=== PATIENT | male | born 1955 | race African-American/Black ===

== ENCOUNTER 2016-12-19 06:25 | Day surgery (SDC) | payer MEDICARE, MEDICAID ==
[2016-11-08 12:17] LABS: APPEARANCE,URINE CLEAR; BASOPHILS % (AUTO) 1.3 % (0.0-2.0); EOSINOPHILS % (AUTO) 0.7 % (0.0-3.0); KETONES,URINE 1+ (NEGATIVE); LEUKOCYTE ESTERASE ,URINE 1+ (NEGATIVE); LYMPHOCYTES % (AUTO) 11.5 % (20.0-45.0); MEAN CORPUSCULAR HEMOGLOBIN 30.4 PG (27.0-31.0); MEAN CORPUSCULAR HGB CONC 33.2 G/DL (32.0-36.0); MEAN CORPUSCULAR VOLUME 91 FL (80-99); MEAN PLATELET VOLUME 6.5 FL (6.5-10.1); MONOCYTES % (AUTO) 9.6 % (1.0-10.0); NEUTROPHILS % (AUTO) 76.9 % (45.0-75.0); NITRITE,URINE NEGATIVE (NEGATIVE); PH,URINE 5 (4.5-8.0); PLATELET COUNT 222 K/UL (150-450); PROTEIN,URINE 3+ (NEGATIVE); RED CELL DISTRIBUTION WIDTH 13.7 % (11.6-14.8); UROBILINOGEN,URINE 1 MG/DL (0.0-1.0); WHITE BLOOD COUNT 7.9 K/UL (4.8-10.8)
[2016-11-08 12:29] LABS: INR 0.9 (0.9-1.1); PROTHROMBIN TIME 9.3 SEC (9.30-11.50)
[2016-11-08 12:30] LABS: BACTERIA,URINE FEW /HPF; HYALINE CASTS, URINE 0-2 /LPF; MUCUS,URINE OCCASIONAL /LPF (NONE/OCC); SQUAMOUS EPITHELIAL CELL,UR OCCASIONAL /LPF (NONE/OCC); WBC,URINE 0-2 /HPF (0 - 0)
[2016-11-08 12:31] LABS: ALBUMIN/GLOBULIN RATIO 1.5 (1.0-2.7); CALCIUM 9.2 mg/dL (8.6-10.2); CREATININE 1.9 mg/dL (0.7-1.2); MAGNESIUM 1.7 mg/dL (1.7-2.5); PHOSPHORUS 3.3 mg/dL (2.5-4.8); POTASSIUM 4.9 mEQ/L (3.4-4.9); TOTAL PROTEIN 6.9 g/dL (6.6-8.7)
[~2016-12-19] VITALS: Ht 182.9 cm; Wt 72.6 kg
[2016-12-19] VITALS (9 sets, daily range): BP systolic 134–161; BP diastolic 80–101
[~2016-12-19 06:25] MED LIST: ASPIRIN81 MG ORAL; Akten 3.5% 1ml Btl RIGHT EYE SCH; BENAZEPRIL HCL40 MG ORAL; CITALOPRAM HBR40 M1 ORAL; HYDROCHLOROTHIA25 MG ORAL; IBUPROFEN200 M2 ORAL; Ketorolac Tromethamine Opth 5ml Soln RIGHT EYE SCH; LORATADINE10 M2 PO; PRAVASTATIN SOD20 M1 ORAL; Phenylephrine 10% Opth Soln 5ml RIGHT EYE SCH; SEROQUEL XR300 MG ORAL; SIMVASTATIN10 MG ORAL; Tropicamide 1% Opth 15ml Soln RIGHT EYE SCH; Vigamox Opth Soln 3ml RIGHT EYE SCH; acetaZOLAMIDE 125mg tab ORAL ONE
[2016-12-19] MEDS ORDERED: Ketorolac Tromethamine Opth 5ml Soln ONE (07:14)
[2016-12-19] MEDS ORDERED: Vigamox Opth Soln 3ml ONE (07:14)
[2016-12-19] MEDS ORDERED: Tropicamide 1% Opth 15ml Soln ONE (07:14)
[2016-12-19] MEDS ORDERED: Akten 3.5% 1ml Btl ONE (07:14)
[2016-12-19] MEDS ORDERED: Phenylephrine 10% Opth Soln 5ml ONE (07:14)
[2016-12-19] MEDS ORDERED: BSS 500ml btl ONE (07:15)
[2016-12-19] MEDS ORDERED: Dexamethasone 4mg/ml vial ONE (07:15)
[2016-12-19] MEDS ORDERED: Maxitrol Opth Oint 3.5gm ONE (07:15)
[2016-12-19] MEDS ORDERED: Tetracaine 0.5% Opth 4ml Soln ONE (07:15)
[2016-12-19] MEDS ORDERED: Lidocaine 1% MPF 10mg/ml 5ml ONE (07:15)
[2016-12-19] MEDS ORDERED: Povidone-Iodine 5% opth solution ONE (07:16)
[2016-12-19] MEDS ORDERED: Carbachol 0.01% Op Soln 1.5ml vial ONE (07:16)
[2016-12-19] MEDS ORDERED: EPINEPHrine 1mg/1ml Amp ONE (07:16)
[2016-12-19] MEDS ORDERED: Lidocaine 4% Amp ONE (07:16)
[2016-12-19] MEDS ORDERED: Lidocaine 1% 10mg/ml/Epi 0.005mg/ml 30ml vial INJ ONE (07:17)
[2016-12-19] MEDS ORDERED: BSS 15ml BTL ONE (07:17)
[2016-12-19] MEDS ORDERED: Healon Duet Dual Pack ONE (07:17)
[2016-12-19] MEDS ORDERED: Sodium Hyaluronate 14 mg/ml 0.85ml ONE (07:17)
[2016-12-19] MEDS: Tropicamide 1% Opth 15ml Soln LEFT EYE SCH ×3 (07:22→07:53)
[2016-12-19] MEDS: Vigamox Opth Soln 3ml LEFT EYE SCH ×3 (07:23→07:53)
[2016-12-19] MEDS: Ketorolac Tromethamine Opth 5ml Soln LEFT EYE SCH ×3 (07:23→07:53)
[2016-12-19] MEDS: Akten 3.5% 1ml Btl LEFT EYE SCH ×3 (07:23→07:53)
[2016-12-19] MEDS: Phenylephrine 10% Opth Soln 5ml LEFT EYE SCH ×3 (07:23→07:53)
[2016-12-19] MEDS ORDERED: AMLODIPINE BESY10 MG ORAL (07:38)
[2016-12-19] MEDS ORDERED: CRESTOR10 M2 ORAL (07:38)
[2016-12-19] MEDS ORDERED: METOPROLOL TART50 M1 ORAL (07:38)
[2016-12-19] MEDS ORDERED: VITAMIN D400 INTLU ORAL (07:38)
[2016-12-19] MEDS ORDERED: CLOPIDOGREL75 MG ORAL (07:38)
[2016-12-19] MEDS ORDERED: FLOMAX0.4 MG ORAL (07:38)
[2016-12-19] MEDS ORDERED: NS Irrig 1000ml ONE (10:00)
[2016-12-19] MEDS ORDERED: LR 1000ml ONE (10:00)
[2016-12-19] MEDS ORDERED: Lidocaine 1% Plain 30 ml INJ ONE (10:00)
[2016-12-19] MEDS ORDERED: Sterile Water Irrig 1000ml IRRIG ONE (10:00)
[2016-12-19] MEDS ORDERED: Propofol 200mg/20ml IV ONE (10:00)
[2016-12-19] MEDS ORDERED: Midazolam 2mg/2ml Inj ONE (10:00)
[2016-12-19] MEDS ORDERED: Alfentanil 2ml Inj ONE (10:00)
--- NOTE | 2016-12-19 10:09 | Anethesia Preoperative Eval ---
Anesthesia Pre-op PMH/ROS General Date of Evaluation: Dec 19, 2016 Time of Evaluation: 09:44 Anesthesiologist: Jordan ASA Score: ASA 3 Mallampati Score Class I : Soft palate, uvula, fauces, pillars visible Class II: Soft palate, uvula, fauces visible Class III: Soft palate, base of uvula visible Class IV: Only hard plate visible Mallampati Classification: Class II Surgeon: Mario Diagnosis: Cataract OS Surgical Procedure: Cat Ext IOL OS Anesthesia History: none Social History: smoking, current smoker Family History: no anesthesia problems Allergies: Coded Allergies: NO KNOWN ALLERGIES (Unverified Allergy, Unknown, 09/15/13) Medications: see eMAR Past Medical History Cardiovascular: Reports: HTN, CAD - [place], other - HL, Syncope Pulmonary: Reports: COPD HEENT: Reports: cataract (L), cataract (R), glaucoma Musculoskeletal/Integumentary: Reports: OA Anesthesia Pre-op Phys. Exam Physician Exam Last Vital Signs Date Time Temp Pulse Resp B/P (MAP) Pulse Ox O2 Delivery O2 Flow Rate FiO2 12/19/16 07:03 96.8 61 20 136/94 100 Room Air Constitutional: NAD Neurologic: CN 2-12 intact Cardiovascular: RRR Respiratory: CTA Gastrointestinal: S/NT/ND Airway Exam Mallampati Score: Class II MO: full ROM: full Teeth: intact Anesthesia Pre-op A/P Risk Assessment & Plan Assessment: ASA 3 Plan: GA Status Change Before Surgery: Donato Nunn MD Dec 19, 2016 10:09
[2016-12-19] MEDS ORDERED: LR 1000ml 1,000 ML IVLG SCH (10:10)
--- NOTE | 2016-12-19 10:12 | Immediate Post-Op Evaluation ---
Immediate Post-Op Evalulation Immediate Post-Op Evalulation Procedure: Cat Ext IOL OS Date of Evaluation: Dec 19, 2016 Time of Evaluation: 10:55 IV Fluids: 900 LR Blood Products: 0 Estimated Blood Loss: 2 Urinary Output: 0 Blood Pressure Systolic: 161 Blood Pressure Diastolic: 99 Pulse Rate: 54 Respiratory Rate: 16 O2 Sat by Pulse Oximetry: 100 Temperature (Fahrenheit): 97.5 Pain Score (1-10): 1 Nausea: No Vomiting: No Complications 0 Patient Status: awake, reacts, patent, none Hydration Status: adequate Donato Ortega MD Dec 19, 2016 10:12
--- NOTE | 2016-12-19 10:12 | 48 Hour Post Anesthesia Eval ---
Post Anesthesia Evaluation Procedure: Cat Ext IOL OS Date of Evaluation: Dec 19, 2016 Time of Evaluation: 13:06 Blood Pressure Systolic: 147 0: 83 Pulse Rate: 67 Respiratory Rate: 18 Temperature (Fahrenheit): 98.2 O2 Sat by Pulse Oximetry: 100 Airway: patent Nausea: No Vomiting: No Pain Intensity: 1 Hydration Status: adequate Cardiopulmonary Status: Stable Mental Status/LOC: patient returned to baseline Follow-up Care/Observations: 0 Post-Anesthesia Complications: 0 Follow-up care needed: ready to discharge Donato Ortega MD Dec 19, 2016 10:12
[2016-12-19] MEDS ORDERED: Midazolam 2mg/2ml Inj IVP PRN (10:15)
[2016-12-19] MEDS ORDERED: oxyCODONE HCL/Acetaminophen 5/325mg ORAL PRN (10:15)
[2016-12-19] MEDS ORDERED: LORazepam Inj 2mg/ml 1ml IV PRN (10:15)
[2016-12-19] MEDS ORDERED: Atropine Inj 1mg/10ml Syr IV PRN (10:15)
[2016-12-19] MEDS ORDERED: Norco 7.5mg/325mg tab ORAL PRN (10:15)
[2016-12-19] MEDS ORDERED: Meperidine 25mg/0.5ml Inj (FOR RIGORS ONLY) IV PRN (10:15)
[2016-12-19] MEDS ORDERED: DiphenhydrAMINE 50mg/ml Inj IVP PRN (10:15)
[2016-12-19] MEDS ORDERED: Hydromorphone 0.5mg/0.5ml inj IVP PRN (10:15)
[2016-12-19] MEDS ORDERED: Metoclopramide 10mg/2ml Inj IVP PRN (10:15)
[2016-12-19] MEDS ORDERED: Ketorolac 60mg Inj IV PRN (10:15)
[2016-12-19] MEDS ORDERED: Norco 5mg/325mg tab ORAL PRN (10:15)
[2016-12-19] MEDS ORDERED: fentaNYL 100 mcg/2 mL IV PRN (10:15)
[2016-12-19] MEDS ORDERED: Ketorolac 30mg Inj IV PRN (10:15)
--- NOTE | 2016-12-19 10:42 | Operative Note - PDOC ---
Operative Note Operative Note Date of Operation/Procedure: Dec 19, 2016 Chief Complaint: Visually significant cataract, angle closure glaucoma, left eye Pre-op Diagnosis: Visually significant cataract, angle closure glaucoma, left eye Procedure: Complex cataract extraction with intra-ocular lens placement Post-op Diagnosis: The same Post-op Diagnosis: same as pre-op Operative Findings: consistent w/pre-op dx studies Surgeon: Carson Martin Anesthesiologist: Dr. Flores Anesthesia: MAC Specimen: none Complications: none Condition: stable Estimated Blood Loss: none Drains: none Implant(s) used?: Yes - ZCBOO + 27.50 Indications for Procedure Blurred vision, uncontrolled glaucoma Description of Procedure See the complete op note Carson Martin M.D. Dec 19, 2016 10:42
--- NOTE | 2016-12-19 10:45 | Discharge Summary ---
Discharge Summary Hospital Course Date of Admission 12/19/16 Date of Discharge 12/19/16 Admitting Diagnosis Visually significant cataract, uncontrolled glaucoma HPI Rocky Manning is a 61 year old male who was admitted on for Car Lt Eye Discharge Condition Upon Discharge: stable Discharge Disposition Patient was discharged to home with a friend. Discharge Diagnoses: Discharge Instructions Discharge Instructions Follow up with: Dr. Martin the next day Services Upon Discharge: other - home with the family/ friend Diet: cardiac 2 GM Na, low fat Activity: light activity Special Instructions No bending, straining, heavy lifting For Surgical Patients Dressing Care: keep dry and clean May shower: No Contact your physician for: Carson Sewell M.D. Dec 19, 2016 10:45
--- NOTE | 2016-12-19 19:55 | Opthalmology H&P ---
Ophthalmology H&P H&P Chief Complaint: decreased vision in left eye, poorly controlled glaucoma HPI Vision Affects Ability to: read, drive Past Ocular History: glaucoma HPI Narrative 61 y/o AAM with blurred vision and uncontrolled glaucoma left eye, referred for cataract extraction with IOL insertion Exam Visual Acuity: 20/50 Tension: 20 with maximum meds Eye Exam: findings: anterior chambers - shallow, lens - 2+ CC, 2+ NSC, fundus exam - 0.6 c/d Assessment/Plan Treatment Plan: cataract extraction w/ lens implant Goals of Treatment: improvement of vision, lowering of intraocular pressure Attestation Attestation The risks and benefits of the surgery as well as alternative procedures were explained to the patient in detail. Carson Martin M.D. Dec 19, 2016 19:55
--- NOTE | 2016-12-19 19:56 | Pre-Procedure Note/Attestation ---
Pre-Procedure Note/Attestation Complete Prior to Procedure Planned Procedure: left Procedure Narrative: Complex cataract extraction with IOL insertion Indications for Procedure Pre-Operative Diagnosis: Visually significant cataract, angle closure glaucoma, left eye Attestation I attest that I discussed the nature of the procedure; its benefits; risks and complications; and alternatives (and the risks and benefits of such alternatives ), prior to the procedure, with the patient (or the patient's legal guest services representative). I attest that, if there was a reasonable possibility of needing a blood transfusion, the patient (or the patient's legal guest services representative) was given the [facility] standardized written summary, pursuant to the [place] Blood Safety Act ([place] Health and Safety Code # 1645, as amended). I attest that I re-evaluated the patient just prior to the surgery and that there has been no change in the patient's H&P, except as documented below: Carson Martin M.D. Dec 19, 2016 19:56
--- NOTE | 2016-12-19 20:09 | Operative Note - PDOC ---
Opthamology Op Report Surgical Report PREPROCEDURE DIAGNOSIS: 1- Visually significant cataract, left eye 2- Floppy iris syndrome POSTPROCEDURE DIAGNOSIS: 1- Visually significant cataract, left eye 2- floppy iris syndrome PROCEDURE: complex Phacoemulsification with Intra-ocular lens placement, left eye SURGEON: Carson Martin MD ANESTHESIA: MAC, local anesthesia IMPLANT(S): TANYA IOL: ZCBOO, Power 27.50 Serial #[id number] DRAINS: None SPECIMEN: None ESTIMATED BLOOD LOSS: None BLOOD PRODUCTS ADMINISTERED: None COMPLICATIONS: None FINDINGS: Opacified lens, floppy iris INDICATIONS FOR PROCEDURE: This patient is 61 year old male with Visually significant cataract, narrow angle glaucoma who presented with blurred vision and difficulty reading and driving. Past medical history is significant for HTN, HLD and CAD. Past surgical history is significant for hernia operation, cardiac stent, trabeculectomy, right eye. The patient is using ASA, Plavix, crestor, Metoprolol, Amlodipine. There is no known allergy. There is no history of glaucoma or any other hereditary ophthalmic disease in the family. Review of system is negative except for the blurred vision in the affected eye. VA in the operated eye 20/50, IOP 20 mmHg with the maximum medication. Pupils are reactive with RAPD in the right eye. Slit lamp exam: cornea is clear, shallow anterior chamber, 2+ cortical cataract , 2+ nuclear sclerosis cataract, there is no psudoexfoliation present at the pupillary margin or anterior lens capsule. On funds exam cup/disc ratio is 0.6, macula shows normal foveal reflex, retina is attached. Risk, benefit and alternative to cataract surgery was explained to the patient, who agreed to proceed with the procedure. The informed consent was signed by the patient. DESCRIPTION OF PROCEDURE: The patient was seen by me along with anesthesia team in the pre op area and the surgical site was marked and confirmed. Anesthetic drops along with dilating drops was instilled in surgical eye in the pre op. The patient was then brought back to the operating tony placed in supine position. The eye was prepped with Betadine 5% and draped in sterile manner for the ophthalmic surgery. An eyelid speculum was was placed to keep the eyelid open. Paracentesis wound was made superiorly and inferiorly though clear cornea near the limbus using 1.2mm side-port blade. A mixture of Preservative free Lidocaine 2% with epinephrine 03/4999 was injected into the anterior chamber through the paracentesis wound. The anterior chamber was inflated with viscoelastic (viscoat ). A keratom blade was used to make a bi-planar, shelved, clear corneal incision , starting at temporal limbus and then tunneling through clear cornea to enter the anterior chamber. A circular curvilinear continue capsulorrhexis was initiated by cystotom and continued with utrata forceps. The capsular flap then was removed. Hydrodissection and hydrodelineation was performed using BSS until the lens was freely rotatable. The lens nucleus was then removed using the phacoemulsification handpiece. The residual cortex was removed with the bimanual irrigation/aspiration handpieces. The capsular bag and anterior chamber were inflated with viscoelastic, and the IOL was inserted into the capsular bag. Using irrigation/Aspiration handpiece on the aspiration mode, [place] was removed from the anterior and posterior chamber. Miostat was injected to the AC to help constricting of the floppy iris. Main wound and paracentesis wound was hydrated by BSS. The speculum was removed. Vigamox drops and Sterile antibiotic/steroid ointment was applied to the eye. A cotton patch and clear shield were placed over the operative eye. The patient was transferred to the recovery room in stable condition. Carson Martin MD [id number] Carson Martin M.D. Dec 19, 2016 20:09
--- NOTE | 2016-12-20 08:15 | Pre-op HX & Phy Repo 2 SIG ---
DATE OF ADMISSION: 12/19/2016 Reason For Evaluation: I was asked by Dr. Martin to see this 61-year-old male, who is going for elective surgery on the left eye cataract. The patient was examined. Chart was reviewed. Past Medical History/Review Of Systems: Remarkable for history of myocardial infarction and three stent placement three years ago, history of COPD, history of hypertension, and benign prostatic hypertrophy. The patient denies history of stroke or seizures. Denies history of GI bleeding or heartburn. No history of renal insufficiency. No history of thyroid problem or anemia. The patient also has glaucoma. Past Surgical History: Left inguinal hernia repair 30 years ago, of stent placement three years ago. Medications: Baby aspirin, amiodarone, Crestor 10 mg, Flomax 0.4 mg, atenolol 50 mg daily, 75 mg, and eye drops. Patient has glaucoma. ALLERGIES: None known. Family History: Mother alive, has diabetes, and father from heart attack secondary to cocaine abuse. Habits: The patient smoked for 40 years. Presently smokes one to two cigars a day. PHYSICAL EXAMINATION: General: The patient is alert, well-developed and well-nourished male in his 60s. Vital Signs: Blood pressure 157/95, second measurement 136/94, temperature 96.8 degrees, pulse 67 and regular, and O2 saturation 99% on room air. HEENT: Normocephalic and atraumatic. Ears, clear. SKIN: Warm and clear. Tattoo on the neck. CHEST: No deformity or asymmetry. NECK: Supple. Trachea midline. No jugular vein distention. LUNGS: Clear. No rales or rhonchi. HEART: Sinus rhythm. No ectopy. No murmur. No S3 or S4. ABDOMEN: Soft. No palpable mass. No rebound. EXTREMITIES: No peripheral edema. No varicose vein. . NEUROLOGIC: No nystagmus or asymmetry. Laboratory Data: Pending. The patient did not eat or drink from last night. ECG, normal sinus rhythm, bradycardia, 55 per minute, otherwise normal ECG. IMPRESSION: 1. Cataract, left eye. 2. Glaucoma. 3. History of myocardial infarction and three coronary stents three years ago at [facility]. 4. Hypertension. 5. Benign prostatic hypertrophy. 6. Hyperlipidemia. 7. Chronic obstructive pulmonary disease. PLAN: Cataract extraction, left eye, Dr. Martin. Conclusion: The patient's diastolic blood pressure is slightly elevated and mild bradycardia. The patient did not eat or drink from last night. The patient's condition optimized for surgery. Thank you very much Dr. Martin for the privilege to participate in presurgical care of this interesting patient. Debora Castanon M.D. DR: JOE JOB#: [id number] CC:
== END 2016-12-19 12:35 | disposition home or self-care (01) ==
LOC: SUR 06:25
DX: H26.9 Unspecified cataract (principal); H21.81 Floppy iris syndrome; H40.20X0 Unspecified primary angle-closure glaucoma, stage unspecified; I10 Essential (primary) hypertension; I25.10 Atherosclerotic heart disease of native coronary artery without angina pectoris; J44.9 Chronic obstructive pulmonary disease, unspecified; M19.90 Unspecified osteoarthritis, unspecified site; I25.2 Old myocardial infarction; F17.200 Nicotine dependence, unspecified, uncomplicated
CPT/HCPCS: 36415; 66982; 80048; 80053; 81003; 83735; 84100; 85025; 85610; 85730; 87086; 93005; J0171; J1170; J2001; J2250; J2704; J3010; J3490; J7120; V2632; 94003; 94150

== ENCOUNTER 2017-01-16 07:34 | Day surgery (SDC) | payer MEDICARE, MEDICAID ==
--- NOTE | 2017-01-15 18:19 | Opthalmology H&P ---
Ophthalmology H&P H&P Chief Complaint: decreased vision in right eye HPI Vision Affects Ability to: read, watch TV Past Ocular History: glaucoma HPI Narrative The patient is 61 year old man with narrow angle glaucoma due to visually significant cataract and corneal astigmatism. He has difficulty reading and driving. Exam Visual Acuity: 20/400 Tension: 20 with medication Eye Exam: normal OU: external exam, corneas, lens - 2+ CC, 3+ NSC, fundus exam - 0.8 c/d, findings: anterior chambers - shallow Assessment/Plan Treatment Plan: cataract extraction w/ lens implant, other - LRI Goals of Treatment: improvement of vision, lowering of intraocular pressure Attestation Attestation The risks and benefits of the surgery as well as alternative procedures were explained to the patient in detail. Carson Martin M.D. Jan 15, 2017 18:19
--- NOTE | 2017-01-15 18:21 | Pre-Procedure Note/Attestation ---
Pre-Procedure Note/Attestation Complete Prior to Procedure Planned Procedure: right Procedure Narrative: Cataract extraction with IOL insertion right eye Limbal relaxing incision, right eye Indications for Procedure Pre-Operative Diagnosis: Visually significant cataract, right eye Narrow angle glaucoma right eye Corneal astigmatism, right eye Attestation I attest that I discussed the nature of the procedure; its benefits; risks and complications; and alternatives (and the risks and benefits of such alternatives ), prior to the procedure, with the patient (or the patient's legal technical account representative). I attest that, if there was a reasonable possibility of needing a blood transfusion, the patient (or the patient's legal technical account representative) was given the [facility] standardized written summary, pursuant to the [place] Blood Safety Act ([place] Health and Safety Code # 1645, as amended). I attest that I re-evaluated the patient just prior to the surgery and that there has been no change in the patient's H&P, except as documented below: Carson Martin M.D. Jan 15, 2017 18:21
[~2017-01-16] VITALS: Ht 182.9 cm; Wt 71.7 kg
[2017-01-16] VITALS (12 sets, daily range): BP systolic 101–141; BP diastolic 58–88
[~2017-01-16 07:34] MED LIST changes: +AMLODIPINE BESY10 MG ORAL; +Akten 3.5% 1ml Btl ONE; -Akten 3.5% 1ml Btl RIGHT EYE SCH; +BSS 15ml BTL ONE; +BSS 500ml btl ONE; +Bupivacaine 0.75% 30ml vial INJ ONE; +CLOPIDOGREL75 MG ORAL; +CRESTOR10 M2 ORAL; +Carbachol 0.01% Op Soln 1.5ml vial ONE; +Dexamethasone 4mg/ml vial ONE; +EPINEPHrine 1mg/1ml Amp ONE; +FLOMAX0.4 MG ORAL; +Healon Duet Dual Pack ONE; -Ketorolac Tromethamine Opth 5ml Soln RIGHT EYE SCH; +Ketorolac Tromethamine Opth Soln ONE; +Lidocaine 1% 10mg/ml/Epi 0.005mg/ml 30ml vial INJ ONE; +Lidocaine 1% MPF 10mg/ml 5ml ONE; +Lidocaine 2% 20mg/ml/EPI 0.01mg/ml 20ml ONE; +Lidocaine 4% Amp ONE; +METOPROLOL TART50 M1 ORAL; +Maxitrol Opth Oint 3.5gm ONE; +Phenylephrine 10% Opth Soln 5ml ONE; -Phenylephrine 10% Opth Soln 5ml RIGHT EYE SCH; +Povidone-Iodine 5% opth solution ONE; +Sodium Hyaluronate 14 mg/ml 0.85ml ONE; +Tetracaine 0.5% Opth Soln ONE; -Tropicamide 1% Opth 15ml Soln RIGHT EYE SCH; +Tropicamide 1% Opth Soln ONE; +VITAMIN D400 INTLU ORAL; -Vigamox Opth Soln 3ml RIGHT EYE SCH; +Vigamox Opth Soln ONE
[2017-01-16] MEDS: Tropicamide 1% Opth Soln RIGHT EYE SCH ×3 (08:09→08:21)
[2017-01-16] MEDS: Phenylephrine 10% Opth Soln 5ml RIGHT EYE SCH ×3 (08:09→08:21)
[2017-01-16] MEDS: Ketorolac Tromethamine Opth Soln RIGHT EYE SCH ×3 (08:09→08:21)
[2017-01-16] MEDS: Vigamox Opth Soln RIGHT EYE SCH ×3 (08:09→08:21)
[2017-01-16] MEDS: Akten 3.5% 1ml Btl RIGHT EYE SCH ×3 (08:10→08:21)
[2017-01-16] MEDS ORDERED: LR 1000ml ONE (09:00)
[2017-01-16] MEDS ORDERED: Midazolam 2mg/2ml Inj ONE (09:00)
[2017-01-16] MEDS ORDERED: Sterile Water Irrig 1000ml IRRIG ONE (09:00)
[2017-01-16] MEDS ORDERED: NS Irrig 1000ml ONE (09:00)
[2017-01-16] MEDS ORDERED: fentaNYL 100 mcg/2 mL IV ONE (09:00)
[2017-01-16] MEDS ORDERED: LR 1000ml 1,000 ML IVLG SCH (09:04)
--- NOTE | 2017-01-16 09:04 | Anethesia Preoperative Eval ---
Anesthesia Pre-op PMH/ROS General Date of Evaluation: Jan 16, 2017 Time of Evaluation: 09:00 Anesthesiologist: Casie ASA Score: ASA 3 Mallampati Score Class I : Soft palate, uvula, fauces, pillars visible Class II: Soft palate, uvula, fauces visible Class III: Soft palate, base of uvula visible Class IV: Only hard plate visible Mallampati Classification: Class II Surgeon: Mario Diagnosis: R eye cataract Surgical Procedure: R eye cataract extraction Anesthesia History: none Family History: no anesthesia problems Allergies: Coded Allergies: NO KNOWN ALLERGIES (Unverified Allergy, Unknown, 09/15/13) Past Medical History Cardiovascular: Reports: HTN, CAD, [place] - stable no recent CP [address], Denies: valve dz, arrhythmia, other Pulmonary: Denies: asthma, COPD, [place], other Gastrointestinal/Genitourinary: Reports: GERD, CRI, Denies: ESRD, other Neurologic/Psychiatric: Denies: dementia, CVA, depression/anxiety, TIA, other Endocrine: Denies: DM, hypothyroidism, steroids, other HEENT: Reports: cataract (L), cataract (R), Denies: glaucoma, [place] (L), [place] (R), other Hematology/Immune: Denies: anemia, DVT, bleeding disorder, other Musculoskeletal/Integumentary: Denies: OA, RA, DJD, DDD, edema, other PMH Narrative: as above PSxH Narrative: hernia repair, coronary stents placement, L eye cataract Anesthesia Pre-op Phys. Exam Physician Exam Last Vital Signs Date Time Temp Pulse Resp B/P (MAP) Pulse Ox O2 Delivery O2 Flow Rate FiO2 01/16/17 08:12 97.8 60 20 137/88 97 Room Air Constitutional: NAD Neurologic: CN 2-12 intact Cardiovascular: RRR, no M/R/G Respiratory: CTA Gastrointestinal: S/NT/ND Airway Exam Mallampati Score: Class II MO: full Neck: flexible ROM: full Teeth: missing Dentures: no upper, no lower Anesthesia Pre-op A/P Labs see chart Studies Pre-op Studies: EKG - SR Risk Assessment & Plan Assessment: ASA 3 Plan: MAC Status Change Before Surgery: No Pre-Antibiotics Drug: none ANNE NASCIMENTO M.D. Jan 16, 2017 09:04
[2017-01-16] MEDS ORDERED: DiphenhydrAMINE 50mg/ml Inj IVP PRN (09:15)
[2017-01-16] MEDS ORDERED: fentaNYL 100 mcg/2 mL IV PRN (09:15)
[2017-01-16] MEDS ORDERED: Povidone-Iodine 5% opth solution ONE ×2 (09:29→09:54)
[2017-01-16] MEDS ORDERED: Propofol 200mg/20ml IV ONE (09:54)
[2017-01-16] MEDS ORDERED: Triamcinolone 40mg/ml PF Vial ONE (11:13)
--- NOTE | 2017-01-16 11:37 | Operative Note - PDOC ---
Operative Note Operative Note Date of Operation/Procedure: Jan 16, 2017 Chief Complaint: blurred vision, uncontrolled glaucoma, right eye Pre-op Diagnosis: Visually significant cataract, right eye Narrow angle glaucoma right eye Corneal astigmatism, right eye Procedure: Cataract extraction, Ant vitrectomy, LRI, surgical PI Post-op Diagnosis: The same Post-op Diagnosis: same as pre-op Operative Findings: consistent w/pre-op dx studies Surgeon: Dr. Carson Martin Anesthesiologist: Dr. Wilson Anesthesia: general Specimen: none Complications: yes - Vitreous loss Condition: stable Estimated Blood Loss: none Drains: none Implant(s) used?: No Indications for Procedure Visually significant cataract (probably traumatic), uncontrolled glaucoma Description of Procedure See the complete note Carson Martin M.D. Jan 16, 2017 11:37
--- NOTE | 2017-01-16 11:47 | Immediate Post-Op Evaluation ---
Immediate Post-Op Evalulation Immediate Post-Op Evalulation Procedure: R eye cataract extraction Date of Evaluation: Jan 16, 2017 Time of Evaluation: 11:45 IV Fluids: 1000 Blood Products: none Estimated Blood Loss: min Urinary Output: none Blood Pressure Systolic: 132 Blood Pressure Diastolic: 58 Pulse Rate: 74 Respiratory Rate: 20 O2 Sat by Pulse Oximetry: 99 Temperature (Fahrenheit): 97.6 Pain Score (1-10): 2 Nausea: No Vomiting: No Complications none Patient Status: awake, patent, none Hydration Status: adequate ANNE NASCIMENTO M.D. Jan 16, 2017 11:47
[2017-01-16] MEDS ORDERED: Meperidine 50mg/ml Inj(FOR RIGORS ONLY) ONE (11:49)
[2017-01-16] MEDS: Meperidine 50mg/ml Inj(FOR RIGORS ONLY) IV PRN ×2 (11:56→12:31)
--- NOTE | 2017-01-16 12:02 | Discharge Summary ---
Discharge Summary Hospital Course Date of Admission 01/16/17 Date of Discharge 01/16/17 Admitting Diagnosis Visually significant cataract, Uncontrolled glaucoma, astigmatism HPI Rocky Manning is a 61 year old male who was admitted on for Cat Rt Eye Procedures LRI, Cataract extraction, Anterior vitrectomy, surgical PI Hospital Course difficult intubation Discharge Condition Upon Discharge: stable Discharge Disposition Patient was discharged to home with a friend Discharge Diagnoses: Carson Martin M.D. Jan 16, 2017 12:02
--- NOTE | 2017-01-16 13:07 | 48 Hour Post Anesthesia Eval ---
Post Anesthesia Evaluation Procedure: R eye cataract extraction Date of Evaluation: Jan 16, 2017 Time of Evaluation: 13:06 Blood Pressure Systolic: 114 0: 57 Pulse Rate: 58 Respiratory Rate: 20 Temperature (Fahrenheit): 97.6 O2 Sat by Pulse Oximetry: 98 Airway: patent Nausea: No Vomiting: No Pain Intensity: 2 Hydration Status: adequate Cardiopulmonary Status: stable Mental Status/LOC: patient returned to baseline Follow-up Care/Observations: n/a Post-Anesthesia Complications: none Follow-up care needed: ready to discharge ANNE NASCIMENTO M.D. Jan 16, 2017 13:07
--- NOTE | 2017-01-16 16:26 | Operative Note - PDOC ---
Opthamology Op Report Surgical Report PREPROCEDURE DIAGNOSIS: 1- Visually significant cataract, right eye 2- Corneal astigmatism, right eye POSTPROCEDURE DIAGNOSIS: 1- Visually significant cataract, right eye 2- Corneal astigmatism, right eye PROCEDURE: 1- Complex cataract extraction, right eye 2- Anterior vitrectomy, right eye 3- Surgical PI, right eye 4- Limbal relaxing incision, right eye SURGEON: Carson Martin MD ANESTHESIA: General anesthesia IMPLANT(S): None DRAINS: None SPECIMEN: None ESTIMATED BLOOD LOSS: None BLOOD PRODUCTS ADMINISTERED: None COMPLICATIONS: vitreous loss FINDINGS: Large, Opacified and dense lens, fibrotic capsule INDICATIONS FOR PROCEDURE: This patient is 61 year old male with Visually significant cataract, narrow angle glaucoma who presented with blurred vision and difficulty reading and driving and uncontrolled glaucoma right eye. Past medical history is significant for HTN, HLD and CAD. Past surgical history is significant for hernia surgery, cardiac stent, cataract surgery in the left eye, trabeculectomy on the right eye. The patient is using ASA, Plavix, crestor , metoprolol, Amlodipine.. There is no known allergy. There is no history of glaucoma or any other hereditary ophthalmic disease in the family. Review of system is negative except for the blurred vision in the affected eye. VA in the operated eye 20/400, IOP 18 mmHg with Lumigan and combigan. Pupils are reactive with + RAPD on the right eye. Slit lamp exam: cornea is clear, deep anterior chamber, 2+ cortical cataract, 4+ nuclear sclerosis cataract, there is no psudoexfoliation present at the pupillary margin or anterior lens capsule. On funds exam cup/disc ratio is 0.8, macula shows dull foveal reflex, retina is attached. Risk, benefit and alternative to cataract surgery was explained to the patient, who agreed to proceed with the procedure. The informed consent was signed by the patient. DESCRIPTION OF PROCEDURE: The patient was seen by me along with anesthesia team in the pre op area and the surgical site was marked and confirmed. Anesthetic drops along with dilating drops was instilled in surgical eye in the pre op. The patient was then brought back to the operating tony placed in supine position. The patient underwent general anesthesia with difficult intubation by anesthesia team.The eye was prepped with Betadine 5% and draped in sterile manner for the ophthalmic surgery. An eyelid speculum was was placed to keep the eyelid open. using atomic knife LRI was performed from 180 to 235 degree. Paracentesis wound was made superiorly and inferiorly though clear cornea near the limbus using 1.2mm side- port blade. Preservative free Lidocaine 2% mixed with epinephrine 03/4999 was injected into the anterior chamber through the paracentesis wound. The anterior chamber was inflated with viscoelastic (viscoat). A keratom blade was used to make a bi-planar, shelved, clear corneal incision, starting at temporal limbus and then tunneling through clear cornea to enter the anterior chamber. A circular curvilinear continue capsulorrhexis was initiated by cystotom and continued with utrata forceps. The capsular flap then was removed. Hydrodissection was performed using BSS with incomplete rotation of the lens due to adhesions of the lens capsule to the nucleus. The lens nucleus was very dens and large with some attachment to the capsule. Using phacoemulsification handpiece, the sculpting was performed, despite nuclear splitting, necleous pieces was not removable. The procedure was converted to ECCE. Due to vitreous loss, after repairing the extended corneal wound with 4 corneal sutures, anterior vitrectomy was performed. The residual cortex was removed with the bimanual irrigation/aspiration handpieces. Triamcinolone was injected into the AC to pain the vitreous. Ant vitrectomy was performed on the second round to ensure there is no vit in the AC. Using vitrector on the low cut, PI was performed. Main wound and paracentesis wound was hydrated by BSS, until no leakage was observed. Subconjunctival injection of a mixture of dexametasone, ancef was done at the end of the procedure. The speculum was removed. Vigamox drops and Sterile antibiotic/steroid ointment was applied to the eye. A cotton patch and clear shield were placed over the operative eye. The patient was transferred to the recovery room in stable condition. Carson Martin MD [id number] Carson Martin M.D. Jan 16, 2017 16:26
--- NOTE | 2017-01-17 12:30 | Pre-op HX & Phy Repo 2 SIG ---
DATE OF ADMISSION: 01/16/2017 PRESURGICAL INTERNAL MEDICINE HISTORY AND PHYSICAL REASON FOR EVALUATION: I was asked by Dr. Carson Martin to see this 61-year-old male, who is going for elective surgery on the right eye. The patient has a cataract in right eye. Please see full History and Physical by Dr. Carson Martin. The patient was examined. Chart was reviewed. PAST MEDICAL HISTORY AND REVIEW OF SYSTEMS: Remarkable for COPD, hypertension, hyperlipidemia, and heart attack 3 years ago. Denies history of GI bleeding. No diabetes. No renal failure. No hepatitis. PAST SURGICAL HISTORY: Right inguinal hernia years ago and cataract of the left eye recently at [facility]. The patient also had post heart attack two coronary stent placements. MEDICATIONS: The patient's current medications include baby aspirin, amlodipine, Plavix, metoprolol, multivitamin, Crestor, and vitamin D3. FAMILY HISTORY: Father from heart attack and cocaine addiction overdose. Mother had hypertension. SOCIAL HISTORY: The patient smokes two cigars daily. Occasional alcohol. No street drugs. PHYSICAL EXAMINATION: GENERAL: Alert, well-developed, well-nourished male in his 60s. The patient's weight is 168 pounds and 6 feet tall. VITAL SIGNS: Blood pressure 137/88, temperature 97.8, pulse 60 and regular. No ectopy. O2 saturation 97% on room air. SKIN: Clear. No rashes. No diaphoresis or open wounds. LYMPHATIC: Lymph nodes are not enlarged. HEENT: Head, normocephalic and atraumatic. Ears, clear. Eyes, full description per Dr. Carson Martin. Mouth is clear and moist. No dentures. NECK: Supple. No jugular vein distention. Carotids artery +2. Trachea midline. CHEST: No deformity or asymmetry. LUNGS: Clear to auscultation and percussion. HEART: Sinus rhythm. No ectopy. No murmur. No S3 or S4. ABDOMEN: Soft and benign. Liver and spleen are not enlarged. EXTREMITIES: No edema. No varicose veins. No calf tenderness. No deformity. GENITOURINARY TRACT: Normal for gender. No dysuria. No CVA tenderness. NEUROLOGIC: No tremor. No nystagmus. LABORATORY DATA: ECG, sinus rhythm. Normal ECG. Lab work within normal limits. The patient did not eat or drink from last night. IMPRESSION: 1. Cataract, right eye. 2. Chronic obstructive pulmonary disease. 3. Hypertension, controlled. 4. Hyperlipidemia. 5. History of coronary heart disease. 6. Myocardial infarction 3 years ago. 7. Coronary stents x2. PLAN: Cataract extraction, right eye with intraocular lens implant per Dr. Carosn Martin. CONCLUSION: The patient has a history of hypertension, which is controlled by medication. He also has history of chronic obstructive pulmonary disease. O2 saturation within normal limits on room air 97%. The patient did not eat or drink from last night. The patient's condition optimized for surgery. Thank you very much, Dr. Martin, for the privilege to participate in presurgical care of this interesting patient. Debora Castanon M.D. DR: ASAF JOB#: [id number] CC:
== END 2017-01-16 12:55 | disposition home or self-care (01) ==
LOC: SUR 07:34
DX: H26.9 Unspecified cataract (principal); H52.201 Unspecified astigmatism, right eye; H40.9 Unspecified glaucoma; J44.9 Chronic obstructive pulmonary disease, unspecified; E78.5 Hyperlipidemia, unspecified; I25.10 Atherosclerotic heart disease of native coronary artery without angina pectoris; Z95.5 Presence of coronary angioplasty implant and graft; K21.9 Gastro-esophageal reflux disease without esophagitis; I12.9 Hypertensive chronic kidney disease with stage 1 through stage 4 chronic kidney disease, or unspecified chronic kidney disease; N18.9 Chronic kidney disease, unspecified; I25.2 Old myocardial infarction; Z82.49 Family history of ischemic heart disease and other diseases of the circulatory system; Z81.3 Family history of other psychoactive substance abuse and dependence; Z79.82 Long term (current) use of aspirin; Z79.02 Long term (current) use of antithrombotics/antiplatelets
CPT/HCPCS: 65772; 66940; 67010; J0171; J0360; J0690; J1100; J2175; J2250; J2405; J2704; J3010; J3300; J7120; 94003; 94150

== ENCOUNTER 2017-05-30 06:25 | Day surgery (SDC) | payer MEDICARE, MEDICAID ==
--- NOTE | 2017-05-26 11:32 | Pre-Procedure Note/Attestation ---
Pre-Procedure Note/Attestation Complete Prior to Procedure Planned Procedure: right Procedure Narrative: 1. ANTERIOR VITRECTOMY, RIGHT EYE. 2. SECONDARY IOL IMPLANT, RIGHT EYE. 3. ANTERIOR CHAMBER FOREIGN BODY REMOVAL, RIGHT EYE. 4. ANTERIOR SYNECHIOTOMY, RIGHT EYE. Indications for Procedure Pre-Operative Diagnosis: 1. VIREOS POPLARS IN ANTERIOR CHAMBER, RIGHT EYE. 2. APHAKIA, RIGHT EYE. 3. ANTERIOR CHAMBER FOR FOREIGN BODY , RIGHT EYE. 4.ANTERIOR SYNECHIA, RIGHT EYE. Attestation I attest that I discussed the nature of the procedure; its benefits; risks and complications; and alternatives (and the risks and benefits of such alternatives ), prior to the procedure, with the patient (or the patient's legal specialty sales representative). I attest that, if there was a reasonable possibility of needing a blood transfusion, the patient (or the patient's legal specialty sales representative) was given the [facility] standardized written summary, pursuant to the [place] Blood Safety Act ([place] Health and Safety Code # 1645, as amended). I attest that I re-evaluated the patient just prior to the surgery and that there has been no change in the patient's H&P, except as documented below: LILIANA BENTON May 26, 2017 11:32
[~2017-05-30] VITALS: Ht 182.9 cm; Wt 71.7 kg
[2017-05-30] VITALS (9 sets, daily range): BP systolic 116–151; BP diastolic 69–100
[~2017-05-30 06:25] MED LIST changes: -Akten 3.5% 1ml Btl ONE; -BSS 15ml BTL ONE; -BSS 500ml btl ONE; -Bupivacaine 0.75% 30ml vial INJ ONE; -Carbachol 0.01% Op Soln 1.5ml vial ONE; -Dexamethasone 4mg/ml vial ONE; -EPINEPHrine 1mg/1ml Amp ONE; -Healon Duet Dual Pack ONE; -Ketorolac Tromethamine Opth Soln ONE; -Lidocaine 1% 10mg/ml/Epi 0.005mg/ml 30ml vial INJ ONE; -Lidocaine 1% MPF 10mg/ml 5ml ONE; -Lidocaine 2% 20mg/ml/EPI 0.01mg/ml 20ml ONE; -Lidocaine 4% Amp ONE; -Maxitrol Opth Oint 3.5gm ONE; -Phenylephrine 10% Opth Soln 5ml ONE; -Povidone-Iodine 5% opth solution ONE; -Sodium Hyaluronate 14 mg/ml 0.85ml ONE; -Tetracaine 0.5% Opth Soln ONE; -Tropicamide 1% Opth Soln ONE; -Vigamox Opth Soln ONE
[2017-05-30 07:13] LABS: BASOPHILS % (AUTO) 1.9 % (0.0-2.0); EOSINOPHILS % (AUTO) 1.3 % (0.0-3.0); HEMATOCRIT 39.4 % (42.0-52.0); HEMOGLOBIN 13.2 G/DL (14.2-18.0); LYMPHOCYTES % (AUTO) 20.7 % (20.0-45.0); MEAN CORPUSCULAR VOLUME 90 FL (80-99); NEUTROPHILS % (AUTO) 69.1 % (45.0-75.0); PLATELET COUNT 222 K/UL (150-450); RED CELL DISTRIBUTION WIDTH 13.6 % (11.6-14.8); WHITE BLOOD COUNT 6.4 K/UL (4.8-10.8)
--- NOTE | 2017-05-30 07:19 | Anethesia Preoperative Eval ---
Anesthesia Pre-op PMH/ROS General Date of Evaluation: May 30, 2017 Anesthesiologist: Momo ASA Score: ASA 3 Mallampati Score Class I : Soft palate, uvula, fauces, pillars visible Class II: Soft palate, uvula, fauces visible Class III: Soft palate, base of uvula visible Class IV: Only hard plate visible Mallampati Classification: Class II Surgeon: Lore Diagnosis: Right lens dislocation Surgical Procedure: Right eye vitrectomy Anesthesia History: none Social History: alcohol use - daily use, moderate Family History: no anesthesia problems Allergies: Coded Allergies: NO KNOWN ALLERGIES (Unverified Allergy, Unknown, 09/15/13) Medications: see eMAR Past Medical History Cardiovascular: Reports: HTN, CAD - s/p [place] and stents x2, other - HLD, Denies: [place], valve dz, arrhythmia Pulmonary: Reports: COPD, Denies: asthma, DENNY, other Gastrointestinal/Genitourinary: Reports: GERD, CRI, other - BPH, Denies: ESRD Neurologic/Psychiatric: Denies: dementia, CVA, depression/anxiety, TIA, other Endocrine: Denies: DM, hypothyroidism, steroids, other HEENT: Denies: cataract (L), cataract (R), glaucoma, [place] (L), [place] (R), other Hematology/Immune: Reports: anemia - chronic, Denies: DVT, bleeding disorder, other Musculoskeletal/Integumentary: Reports: OA, Denies: RA, DJD, DDD, edema, other PSxH Narrative: Left cataract, Left IHR Anesthesia Pre-op Phys. Exam Physician Exam see chart Constitutional: NAD Cardiovascular: RRR Respiratory: CTA Airway Exam Mallampati Score: Class III MO: full ROM: full Teeth: intact Anesthesia Pre-op A/P Labs Hematology Test 05/30/17 06:55 White Blood Count 6.4 K/UL (4.8-10.8) Red Blood Count 4.40 M/UL (4.70-6.10) L Hemoglobin 13.2 G/DL (14.2-18.0) L Hematocrit 39.4 % (42.0-52.0) L Mean Corpuscular Volume 90 FL (80-99) Mean Corpuscular Hemoglobin 30.1 PG (27.0-31.0) Mean Corpuscular Hemoglobin Concent 33.6 G/DL (32.0-36.0) Red Cell Distribution Width 13.6 % (11.6-14.8) Platelet Count 222 K/UL (150-450) Mean Platelet Volume 7.1 FL (6.5-10.1) Neutrophils (%) (Auto) 69.1 % (45.0-75.0) Lymphocytes (%) (Auto) 20.7 % (20.0-45.0) Monocytes (%) (Auto) 7.0 % (1.0-10.0) Eosinophils (%) (Auto) 1.3 % (0.0-3.0) Basophils (%) (Auto) 1.9 % (0.0-2.0) Chemistry Test 05/30/17 06:55 Sodium Level Pending Potassium Level Pending Chloride Level Pending Carbon Dioxide Level Pending Blood Urea Nitrogen Pending Creatinine Pending Estimat Glomerular Filtration Rate Pending Glucose Level Pending Calcium Level Pending Studies Pre-op Studies: EKG - SR, other - stress test with [place] deficit involving 6% of LV, EF 50% at rest, EKG SR with inverted t waves throughout and RBBB, no evidence of ST depression or elevation Risk Assessment & Plan Assessment: ASA III Plan: GA Status Change Before Surgery: No Pre-Antibiotics Drug: N/A JENNIFER WASHINGTON M.D. May 30, 2017 07:19
[2017-05-30] MEDS ORDERED: Lidocaine 1% MPF 10mg/ml 5ml ONE ×2 (07:20→09:00)
[2017-05-30] MEDS ORDERED: Dexamethasone 4mg/ml vial ONE ×2 (07:20→10:38)
[2017-05-30] MEDS ORDERED: BSS 500ml btl ONE ×2 (07:20→10:20)
[2017-05-30] MEDS: Vigamox Opth Soln 3ml RIGHT EYE SCH ×3 (07:21→07:41)
[2017-05-30] MEDS ORDERED: EPINEPHrine 1mg/1ml Amp ONE (07:21)
[2017-05-30] MEDS ORDERED: BSS 15ml BTL ONE (07:21)
[2017-05-30] MEDS: Ketorolac Tromethamine Opth 5ml Soln RIGHT EYE SCH ×3 (07:21→07:41)
[2017-05-30] MEDS: Akten 3.5% 1ml Btl RIGHT EYE SCH ×3 (07:21→07:41)
[2017-05-30] MEDS ORDERED: Povidone-Iodine 5% opth solution ONE (07:22)
[2017-05-30] MEDS ORDERED: Sodium Hyaluronate 10 mg/ml 0.85ml ONE ×2 (07:22→10:20)
[2017-05-30 07:23] LABS: ANION GAP 8 mmol/L (5-15); BLOOD UREA NITROGEN 20 mg/dL (7-18); CALCIUM 8.7 MG/DL (8.5-10.1); CARBON DIOXIDE 23 MMOL/L (21-32); CHLORIDE 107 MMOL/L (98-107); CREATININE 1.7 MG/DL (0.55-1.30); POTASSIUM 4.7 MMOL/L (3.5-5.1); SODIUM 138 MMOL/L (136-145)
[2017-05-30] MEDS: Phenylephrine 10% Opth Soln 5ml RIGHT EYE SCH ×3 (07:23→07:41)
[2017-05-30] MEDS: Tropicamide 1% Opth 15ml Soln RIGHT EYE SCH ×3 (07:23→07:40)
[2017-05-30] MEDS ORDERED: LR 1000ml 1,000 ML IVLG SCH (08:42)
[2017-05-30] MEDS ORDERED: DiphenhydrAMINE 50mg/ml Inj IVP PRN (08:45)
[2017-05-30] MEDS ORDERED: NS Irrig 1000ml ONE (09:00)
[2017-05-30] MEDS ORDERED: LR 1000ml ONE (09:00)
[2017-05-30] MEDS ORDERED: Sterile Water Irrig 1000ml IRRIG ONE (09:00)
[2017-05-30] MEDS ORDERED: Midazolam 2mg/2ml Inj ONE (09:00)
[2017-05-30] MEDS ORDERED: Sodium Chloride 10ml vial INJ ONE (09:00)
[2017-05-30] MEDS ORDERED: Propofol 200mg/20ml IV ONE (09:00)
--- NOTE | 2017-05-30 09:05 | Immediate Post-Op Evaluation ---
Immediate Post-Op Evalulation Immediate Post-Op Evalulation Procedure: Right eye vitrectomy Date of Evaluation: May 30, 2017 Time of Evaluation: 11:07 IV Fluids: 500 Blood Products: 0 Estimated Blood Loss: 0 Urinary Output: 0 Blood Pressure Systolic: 142 Blood Pressure Diastolic: 93 Pulse Rate: 65 Respiratory Rate: 17 O2 Sat by Pulse Oximetry: 100 Temperature (Fahrenheit): 98.3 Pain Score (1-10): 0 Nausea: No Vomiting: No Complications at baseline Patient Status: awake, reacts, patent, none Hydration Status: adequate Drug: N/A JENNIFER WASHINGTON M.D. May 30, 2017 09:05
--- NOTE | 2017-05-30 11:00 | Discharge Summary ---
Discharge Summary Discharge Summary Discharge Summary DATE OF ADMISSION:05/02/2017 DATE OF DISCHARGE: 05/02/2017 REASON FOR HOSPITALIZATION: Aphakia, right eye SURGERY PERFORMED: 1- Anterior vitrectomy, right eye 2- Posterior synichiotomy 3 - Secondary IOl implanted, right eye CONDITION IN THE HOSPITAL:The patient tolerated the surgery without complications. DISCHARGE CONDITION: The patient was stable at discharge. DISCHARGE MEDICATIONS: 1. Vigamox eye drops one drop q.i.d, OD 2. Prednisolone one drop q.i.d, OD 3. Prolensa one drop qd, right eye POSTOPERATIVE ORDERS: The patient has to rest at home. No bending, No lifting, No watching Television tonight. POSTOPERATIVE FOLLOW UP: The patient will be followed in my office tomorrow morning at 7 o'clock. LILIANA BENTON May 30, 2017 11:00
--- NOTE | 2017-05-30 11:04 | Brief Operative Note ---
Immediate Post Operative Note Operative Note Chief Complaint: Blurry vision in the right eye. Difficulty driving abd reading Pre-op Diagnosis: 1. VIREOS POPLARS IN ANTERIOR CHAMBER, RIGHT EYE. 2. APHAKIA, RIGHT EYE. 3. ANTERIOR CHAMBER FOR FOREIGN BODY , RIGHT EYE. 4.ANTERIOR SYNECHIA, RIGHT EYE. Procedure: 1- Anterior vitrectomy, right eye 2- Posterior synechiotomy, right eye 3- Secondary IOL implanted in the right eye Post-op Diagnosis: same as pre-op plus Surgeon: Liliana Torrez MD. Media Planner / Buyer: None Additional Surgeons: None Anesthesiologist: DR. Barr Anesthesia: general Specimen: none Complications: none Condition: stable Fluids: 800ml Estimated Blood Loss: none Drains: none Implant(s) used?: Yes - Monofocal PC IOl was implanted in the right eye without complications LILIANA TORREZ May 30, 2017 11:04
--- NOTE | 2017-05-30 11:04 | 48 Hour Post Anesthesia Eval ---
Post Anesthesia Evaluation Procedure: Right eye vitrectomy Date of Evaluation: May 30, 2017 Airway: patent Nausea: No Vomiting: No Pain Intensity: 0 Hydration Status: adequate Cardiopulmonary Status: at baseline Mental Status/LOC: patient returned to baseline Post-Anesthesia Complications: 0 Follow-up care needed: ready to discharge JENNIFER WASHINGTON M.D. May 30, 2017 11:04
[2017-05-30] MEDS ORDERED: Carbachol 0.01% Op Soln 1.5ml vial ONE (14:48)
--- NOTE | 2017-05-30 15:45 | Pre-op HX & Phy Repo 2 SIG ---
DATE OF ADMISSION: 05/30/2017 PRESURGICAL INTERNAL MEDICINE HISTORY AND PHYSICAL REASON FOR EVALUATION: I was asked by Dr. Jimmy Torrez to see this 62-year-old male, who is going for elective surgery on the right eye. The patient has a dislocated intraocular lens on the right eye. The patient was evaluated, chart was reviewed. PAST MEDICAL HISTORY AND REVIEW OF SYSTEMS: Denies history of heart attack, but has a history of coronary artery stent placement, two-vessel, due to coronary heart disease. The patient has a history of hypertension, benign prostatic hypertrophy, and COPD. Denies history of diabetes or stroke. No seizures. Denies history of anemia. No GI bleeding. No hepatitis. No history of renal failure. PAST SURGICAL HISTORY: Bilateral cataract and coronary stents x2. FAMILY HISTORY: Father from complication of cocaine addiction and mother alive, has a brain aneurysm. ALLERGIES: Not known. PRESENT MEDICATIONS: Include amlodipine, aspirin, Plavix, metoprolol, and Flomax. HABITS: The patient smokes cigar one a day, moderate alcohol. No street drugs. PHYSICAL EXAMINATION: GENERAL: This is a well-developed, well-nourished male, in his 60s, no acute distress. VITAL SIGNS: Blood pressure 157/100, temperature 98.9, pulse 65, and O2 saturation 98% on room air. SKIN: No rashes. Tattoo. Warm. No diaphoresis or open wounds. LYMPHATICS: Lymph nodes not enlarged. HEENT: Head, normocephalic and atraumatic. Ears, clear. Eyes, full description per Dr. Jimmy Torrez. Mouth, clear and moist. No dentures. NECK: Supple. No jugular vein distention. Carotid artery +2. Trachea midline. CHEST: No deformity or asymmetry. LUNGS: Clear. No rhonchi or rales. HEART: Regular. No murmur. No S3 or S4. ABDOMEN: Soft, benign. No palpable mass. No rebound. EXTREMITIES: No edema. No calf tenderness. No varicose veins. GENITOURINARY TRACT: Normal for gender. Nocturia x2. No CVA tenderness. NEUROLOGIC: No tremor. No nystagmus. DIAGNOSTIC AND LABORATORY DATA: ECG from previous admission, sinus rhythm, marked left axis deviation, ejection fraction less than 60%, incomplete right bundle-branch block. Laboratory done today, white blood cells 6.4, hemoglobin 13.2, and hematocrit 39.4. BUN 20, creatinine 1.7, GFR 49.9, glucose 90, calcium 8.7, potassium 4.7, and sodium 138. The patient did not eat or drink from 8 p.m. last night. He took amlodipine one dose with sip of water. IMPRESSION: 1. Dislocated lens, right eye. 2. Hypertension, not complete control with diastolic blood pressure elevation. 3. Atherosclerotic heart disease with coronary stent x2. 4. Chronic obstructive pulmonary disease. 5. Benign prostatic hypertrophy. PLAN: Anterior chamber removal, vitrectomy 23 G, right eye per Dr. Jimmy Torrez. CONCLUSION: The patient has a history of hypertension, not well controlled on one medication. The patient's last dose of Plavix and aspirin were 6 days ago. The patient has ECG changes with left axis deviation and incomplete right bundle-branch block. The patient has a coronary stent placement in two vessels. The patient did not eat or drink from last night. The patient's condition optimized for surgery. Thank you very much, Dr. Torrez, for the privilege to participate in the presurgical care of this interesting patient. Debora Castanon M.D. DR: VIDA JOB#: [id number] CC:
--- NOTE | 2017-05-31 05:15 | Operative Note - Dictated ---
DATE OF OPERATION: 05/30/2017 FACILITY: [facility]. SURGEON: Jimmy Torrez M.D. REMEDY DEVELOPER: None. ANESTHESIOLOGIST: Dr. Barr. ANESTHESIA: Monitored anesthesia care (MAC). PREOPERATIVE DIAGNOSES: 1. Posterior synechiae in the right eye. 2. Vitreous prolapse in the right eye. 3. Aphakia. POSTOPERATIVE DIAGNOSES: 1. Posterior synechiae in the right eye. 2. Vitreous prolapse in the right eye. 3. Aphakia. SURGERY PERFORMED: 1. Posterior synechiotomy, right eye. 2. Anterior vitrectomy, right eye. 3. Secondary IOL insertion, right eye. INDICATIONS FOR SURGERY: The patient is a 62-year-old male with visually significant blurred vision in the right eye. The patient has had glaucoma and was treated for glaucoma for many years. Three months ago, the patient underwent cataract surgery to the right eye in other facility with another surgeon, but because of complications, that surgeon could not insert intraocular lens in the right eye. When I saw the patient, the patient was aphakic in the right eye and also the patient had some posterior synechiae and vitreous prolapse in the anterior chamber. The patient has had cataract surgery in the left eye with very satisfactory results. I talked to the patient and we decided to perform surgery to the right eye to perform posterior synechiotomy, anterior vitrectomy, and insertion of new IOL in the right eye. The patient is complaining of blurry vision in this eye. The patient has had hypertension. Past history also significant for hypertension, hypercholesterolemia, and coronary artery disease. Past surgical history is significant for hernia surgery, cataract surgery, cardiac stent, cataract surgery in the left eye, and trabeculectomy in the right eye. The patient is on aspirin, Plavix, Crestor, metoprolol, and amlodipine. There are no known allergies. There is no history of allergy to medication. The patient is not . Review of system is negative except for blurred vision in the aphakic eye. Visual acuity in the right eye is hand motion and intraocular pressure is 12 with Lumigan and Combigan. Pupils are irregular and posterior synechiae, but because of posterior synechiae, there is no RAPD on the right eye. examination, cornea is clear. There is some scarred periphery of the cornea due to previous surgery. There is no flare or cell. The retina is flat. Macula and optic disc are within normal limits. To improve his vision, the synechia should be removed, vitrectomy should be done and intraocular lens has to be implanted. DESCRIPTION OF SURGERY: Following that, the patient was taken to the operating room in stable condition. General anesthesia was given by the anesthesiologist, Dr. Barr. After the patient was ready, the right eye was prepped and draped in usual sterile fashion for intraocular surgery. Following that, a speculum was placed in the right eye. Following that, using a corneal marker, the 3 o'clock - 8 o'clock meridian of the cornea was marked. Following that, anterior chamber maintaining cannula was inserted. Following that, conjunctival peritomy was performed at 3 and 8 o'clock. Following that, the scleral flap was created and hemostasis was performed. Following that, the MVR blade 1 mm outside of the corneoscleral junction, the sclera was into the vitreous cavity. Following that, the scleral canal was created with a 26-gauge needle. Following that, the temporal keratotomy was performed and +28 diopter NM60AC PCIOL with serial number [id number] was inserted into the posterior chamber, with a micro the haptic was grasped and was externalized under the scleral flap. Same pattern was performed for the trailing haptic and both haptics were externalized from the sclera and inserted into the scleral tunnel. With the Tisseel glue, the sclera was glued to the bed and to the haptic of the lens. Then, conjunctiva was glued to the area. The lens was checked. It was central and was . Following that, before the lens was inserted into the posterior and anterior chamber, a posterior synechiotomy was performed and anterior vitrectomy was performed. At the end of the procedure also, anterior vitrectomy was performed and the anterior chamber was cleaned. Following that with 10-0 nylon, all wounds were stitched. The anterior chamber was formed. The intraocular pressure was around 18 mmHg. The patient tolerated the surgery. At the end of the surgery, gentamicin and dexamethasone was injected under the skin and capsule. The eye was patched with eye pad and fenestrated shield. The patient tolerated the surgery very well. After discontinuation of the general anesthesia, the patient was transferred to the recovery room. In the recovery room, 125 mg Diamox was given by mouth stat. Postoperative orders and directions were given to the patient. The patient will be discharged home upon stabilization. The patient will be followed in my office tomorrow morning at 9 o'clock. Jimmy Torrez M.D. DR: Juan JOB#: [id number] CC:
== END 2017-05-30 13:05 | disposition home or self-care (01) ==
LOC: SUR 06:25
DX: H21.541 Posterior synechiae (iris), right eye (principal); H43.01 Vitreous prolapse, right eye; H27.01 Aphakia, right eye; T85.22XA Displacement of intraocular lens, initial encounter; I10 Essential (primary) hypertension; I25.10 Atherosclerotic heart disease of native coronary artery without angina pectoris; Z95.5 Presence of coronary angioplasty implant and graft; J44.9 Chronic obstructive pulmonary disease, unspecified; N40.0 Benign prostatic hyperplasia without lower urinary tract symptoms; X58.XXXA Exposure to other specified factors, initial encounter; E78.5 Hyperlipidemia, unspecified; I45.10 Unspecified right bundle-branch block; Z79.82 Long term (current) use of aspirin; Z79.02 Long term (current) use of antithrombotics/antiplatelets; F17.200 Nicotine dependence, unspecified, uncomplicated
CPT/HCPCS: 36415; 65875; 66985; 67010; 80048; 85025; J0171; J1100; J2250; J2704; J7120; V2632; 94003; 94150

== ENCOUNTER 2019-01-04 10:37 | Day surgery (SDC) | payer MEDICARE, MEDICAID ==
[~2019-01-04] VITALS: Ht 185.4 cm; Wt 74.8 kg
[2019-01-04] VITALS (8 sets, daily range): BP systolic 123–143; BP diastolic 9–93
[~2019-01-04 10:37] MED LIST changes: -acetaZOLAMIDE 125mg tab ORAL ONE
--- NOTE | 2019-01-04 12:33 | Short Stay Surgery H&P ---
History of Present Illness History of Present Illness Chief Complaint see recent office note HPI Rocky Manning is a 63 year old male who was admitted on for Gerd,Anemia, Screening Colonoscopy Patient History Allergies: Coded Allergies: NO KNOWN ALLERGIES (Unverified Allergy, Unknown, 09/15/13) Medication History Scheduled Amlodipine Besylate* (Amlodipine Besylate*), 10 MG ORAL DAILY, (Reported) Aspirin* (Aspirin*), 81 MG ORAL DAILY Clopidogrel* (Clopidogrel*), 75 MG ORAL DAILY, (Reported) Metoprolol Tartrate* (Metoprolol Tartrate*), 50 MG ORAL EVERY 12 HOURS, ( Reported) Rosuvastatin Calcium* (Crestor*), 10 MG ORAL DAILY, (Reported) Tamsulosin HCl (Flomax), 0.4 MG ORAL DAILY, (Reported) Physical Exam Vital Signs Last Vital Signs Date Time Temp Pulse Resp B/P (MAP) Pulse Ox O2 Delivery O2 Flow Rate FiO2 01/04/19 11:36 Room Air 01/04/19 11:31 98.1 64 18 134/80 99 Plan Attestation Are the patient's medical conditions optimized for surgery? Ruben Sahu MD Jan 04, 2019 12:33
--- NOTE | 2019-01-04 12:33 | Pre-Procedure Note/Attestation ---
Pre-Procedure Note/Attestation Complete Prior to Procedure Planned Procedure: not applicable Procedure Narrative: esophagogastroduodenoscopy and colonoscopy Indications for Procedure Pre-Operative Diagnosis: GERD, screening colon Attestation I attest that I discussed the nature of the procedure; its benefits; risks and complications; and alternatives (and the risks and benefits of such alternatives ), prior to the procedure, with the patient (or the patient's legal open claims representative). I attest that, if there was a reasonable possibility of needing a blood transfusion, the patient (or the patient's legal open claims representative) was given the [facility] standardized written summary, pursuant to the [place] Blood Safety Act ([place] Health and Safety Code # 1645, as amended). I attest that I re-evaluated the patient just prior to the surgery and that there has been no change in the patient's H&P, except as documented below: Ruben Sahu MD Jan 04, 2019 12:33
--- NOTE | 2019-01-04 12:51 | Anethesia Preoperative Eval ---
Anesthesia Pre-op PMH/ROS General Date of Evaluation: Jan 04, 2019 Time of Evaluation: 12:49 Anesthesiologist: Anahy Poe CRNA ASA Score: ASA 3 Mallampati Score Class I : Soft palate, uvula, fauces, pillars visible Class II: Soft palate, uvula, fauces visible Class III: Soft palate, base of uvula visible Class IV: Only hard plate visible Mallampati Classification: Class II Surgeon: Luis Alberto Diagnosis: GERD, anemia, colon screening Surgical Procedure: EGD, colonoscopy Anesthesia History: none Social History: smoking, current smoker Family History: no anesthesia problems Allergies: Coded Allergies: NO KNOWN ALLERGIES (Unverified Allergy, Unknown, 09/15/13) Medications: see eMAR Patient NPO?: Yes NPO Date: Jan 04, 2019 NPO Time: 00:00 Past Medical History Cardiovascular: Reports: HTN, CAD, [place], other - s/p stent x 2; Denies: valve dz, arrhythmia Pulmonary: Reports: COPD; Denies: asthma, [place], other Gastrointestinal/Genitourinary: Reports: GERD, other - BPH; Denies: CRI, ESRD Neurologic/Psychiatric: Denies: dementia, CVA, depression/anxiety, TIA, other Endocrine: Denies: DM, hypothyroidism, steroids, other HEENT: Reports: cataract (L), cataract (R), glaucoma; Denies: [place] (L), [place] (R), other Hematology/Immune: Reports: anemia; Denies: DVT, bleeding disorder, other Musculoskeletal/Integumentary: Reports: OA; Denies: RA, DJD, DDD, edema, other PMH Narrative: as noted above PSxH Narrative: see H & P Anesthesia Pre-op Phys. Exam Physician Exam Last Vital Signs Date Time Temp Pulse Resp B/P (MAP) Pulse Ox O2 Delivery O2 Flow Rate FiO2 01/04/19 11:36 Room Air 01/04/19 11:31 98.1 64 18 134/80 99 Constitutional: NAD Neurologic: other - alert & oriented Cardiovascular: RRR Respiratory: CTA Gastrointestinal: S/NT/ND Airway Exam Mallampati Score: Class II MO: full Neck: FROM TMD: > 3 FB ROM: full Teeth: intact Dentures: no upper, no lower Anesthesia Pre-op A/P Studies Pre-op Studies: EKG - NSR, LAE Risk Assessment & Plan Assessment: ASA 3, ok to proceed Plan: MAC Status Change Before Surgery: No Pre-Antibiotics Given Within 1 Hr of Incision: No Anahy Poe CRNA Jan 04, 2019 12:51
--- NOTE | 2019-01-04 12:55 | Endoscopy Procedure Note ---
Endoscopy Procedure Note General Indication for Procedure: screening colon, GERD Procedures Performed: EGD, colonoscopy Operative Findings/Diagnosis: gastritis, diverticulosis Specimen: yes Pt Tolerated Procedure Well: Yes Estimated Blood Loss: none Anesthesia Anesthesiologist: wen Anesthesia: MAC Inserted Devices Implant(s) used?: No Quality Quality of Bowel Preparation: Good Did scope reach the cecum?: Yes Was there any complications?: No GI Core Measures 50 yrs or older w/o bx or poly: No 10yrs. F/U recommended: Yes If not recommended, why?: Above average risk 18 years or older w/prev. colo: No Ruben Sahu MD Jan 04, 2019 12:54
[2019-01-04] MEDS ORDERED: LR 1000ml ONE (13:00)
[2019-01-04] MEDS ORDERED: Propofol 200mg/20ml IV ONE (13:00)
[2019-01-04] MEDS ORDERED: Lidocaine 1% MPF 10mg/ml 5ml ONE (13:00)
--- NOTE | 2019-01-04 13:38 | Immediate Post-Op Evaluation ---
Immediate Post-Op Evalulation Immediate Post-Op Evalulation Procedure: EGD, colonoscopy Date of Evaluation: Jan 04, 2019 Time of Evaluation: 13:35 IV Fluids: LR 500 ml Blood Pressure Systolic: 123 Blood Pressure Diastolic: 89 Pulse Rate: 71 Respiratory Rate: 18 O2 Sat by Pulse Oximetry: 100 Temperature (Fahrenheit): 98.1 Pain Score (1-10): 0 Nausea: No Vomiting: No Complications none Patient Status: awake, patent Hydration Status: adequate Given Within 1 Hr of Incision: Anahy Liu CRNA Jan 04, 2019 13:38
--- NOTE | 2019-01-04 13:41 | 48 Hour Post Anesthesia Eval ---
Post Anesthesia Evaluation Procedure: EGD, colonoscopy Date of Evaluation: Jan 04, 2019 Time of Evaluation: 13:39 Blood Pressure Systolic: 132 0: 93 Pulse Rate: 67 Respiratory Rate: 20 Temperature (Fahrenheit): 98.1 O2 Sat by Pulse Oximetry: 100 Airway: patent Nausea: No Vomiting: No If pain is > 6 Comment: 0 Hydration Status: adequate Cardiopulmonary Status: stable Mental Status/LOC: patient returned to baseline Follow-up Care/Observations: per GI Post-Anesthesia Complications: none Follow-up care needed: N/A Anahy Poe CRNA Jan 04, 2019 13:40
--- NOTE | 2019-01-04 19:15 | Procedure Note ---
DATE OF PROCEDURE: 01/04/2019 SURGEON: Ruben Sahu M.D. PROCEDURE: Upper endoscopy with biopsy and colonoscopy. ANESTHESIA: Per nurse, ANDREW Higginbotham. INSTRUMENT: Olympus adult flexible upper endoscope and colonoscope. INDICATION: Screening colonoscopy evaluation and chronic GERD. The procedure, risks, benefits, and possible consequences, including hemorrhage, aspiration, perforation and infection, and alternative treatments, were explained to the patient/legal guardian by Dr. Ruben Sahu and the patient/legal guardian understood and accepted these risks. DESCRIPTION OF PROCEDURE: After informed consent was obtained and the patient was adequately sedated, Olympus upper endoscope was advanced from the mouth into the second portion of duodenum and retroflexion was performed in the stomach. The patient had evidence of a 4 cm hiatal hernia without any obvious esophagitis. In the stomach, there was diffuse gastritis. Random biopsy from antrum was obtained to rule out H. pylori infection. In the duodenum, there was mild duodenitis. Biopsy from the duodenum was obtained. At this time, the upper endoscope was retrieved and the patient was turned over for colonoscopy. First, rectal exam was performed, which was normal. Then, the scope was advanced from the rectum into the cecum documented by appendix orifice, ileocecal valve, and right upper quadrant palpation. Quality of prep was good. The patient had evidence of diverticulosis scattered in the left colon without any obvious diverticulitis. No mass or polyp was seen. Retroflexion of rectum showed evidence of internal hemorrhoids. SUMMARY OF FINDINGS: 1. A 4-cm hiatal hernia. 2. Gastritis. 3. Duodenitis. 4. Diverticulosis. 5. Internal hemorrhoids. RECOMMENDATIONS: Follow up biopsy results and treat accordingly. Ruben Sahu M.D. DR: Moises JOB#: [id number] CC:
== END 2019-01-04 14:40 | disposition home or self-care (01) ==
LOC: GAS 10:37
DX: Z12.11 Encounter for screening for malignant neoplasm of colon (principal); K21.9 Gastro-esophageal reflux disease without esophagitis; Z79.82 Long term (current) use of aspirin; Z79.899 Other long term (current) drug therapy; I11.9 Hypertensive heart disease without heart failure; I25.2 Old myocardial infarction; Z95.5 Presence of coronary angioplasty implant and graft; J44.9 Chronic obstructive pulmonary disease, unspecified; M19.90 Unspecified osteoarthritis, unspecified site
CPT/HCPCS: 43239; G0121; J2704; 94003; 94150